=== PATIENT | male | born 1990 | race Caucasian/White ===

== ENCOUNTER 2017-03-08 06:19 | Emergency (ER) | payer OTHER ==
[2017-03-08 08:11] VITALS: BP 114/72
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
== END 2017-03-08 08:10 | disposition home or self-care (01) ==
LOC: ED 06:19
DX: S83.8X1A Sprain of other specified parts of right knee, initial encounter (principal); M25.561 Pain in right knee; W10.9XXA Fall (on) (from) unspecified stairs and steps, initial encounter; Y93.9 Activity, unspecified; Y92.9 Unspecified place or not applicable
CPT/HCPCS: 99282

== ENCOUNTER 2017-03-10 09:37 | Observation (INO) | payer OTHER ==
[2017-03-10 10:48] LABS: Hematocrit 43 % (42-52); Hemoglobin 14.9 g/dl (14.0-18.0); Mean Corpuscular HGB Conc 35 g/dl (31-36); Mean Corpuscular Hemoglobin 30 pg (27-31); Mean Corpuscular Volume 85 fL (80-94); Mean Platelet Volume 9 um3 (7.4-10.4); Red Blood Count 5.02 10^6/ul (4.0-5.4); Red Cell Distribution Width 13 % (10.5-15); White Blood Count 11.7 10^3/ul (3.5-10.8)
[2017-03-10 11:03] LABS: Urine Bacteria Absent (Absent); Urine Bilirubin Negative (Negative); Urine Glucose Negative (Negative); Urine Nitrite Negative (Negative)
[2017-03-10] MEDS ORDERED: Ondansetron INJ* 2 MG/ML VIAL IV ONE (11:13)
[2017-03-10] MEDS ORDERED: Morphine INJ* 2 MG/ML 1 ML SYRINGE IV ONE (11:13)
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
[2017-03-10 11:14] LABS: ALT 14 U/L (7-52); AST 24 U/L (13-39); Albumin 4.6 g/dL (3.2-5.2); Alkaline Phosphatase 48 U/L (34-104); BUN/Creatinine Ratio 8.8 (8-20); Blood Urea Nitrogen 7 mg/dL (6-24); CO2 Carbon Dioxide 28 mmol/L (22-32); Calcium 9.9 mg/dL (8.6-10.3); Chloride 93 mmol/L (101-111); EGFR Non-African American 115.1 (>60); Glucose 92 mg/dL (70-100); Sodium 132 mmol/L (133-145); Total Protein 7.6 g/dL (6.4-8.9)
[2017-03-10 11:20] LABS: Anion Gap 11 mmol/L (2-11); Potassium 2.3 mmol/L (3.5-5.0)
[2017-03-10] MEDS ORDERED: Iohexol 300* (CONTRAST) 10 ML SDV IV ONE (11:20)
[2017-03-10 11:23] LABS: Benzodiazepine Urine Screen None Detected (None Detect)
[2017-03-10 11:59] LABS: Acetaminophen < 15 mcg/mL; Alcohol < 10 mg/dL (<10); Salicylate < 2.50 mg/dL (<30)
[2017-03-10 12:02] LABS: Magnesium 1.6 mg/dL (1.9-2.7)
[2017-03-10 12:10] LABS: TSH (Thyroid Stimulating Horm) 0.88 mcIU/mL (0.34-5.60)
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
[2017-03-10] MEDS ORDERED: Magnesium Sulfate 1 GM IV* 1 GM/100 ML BAG IV ONE (12:19)
[2017-03-10] MEDS ORDERED: Potassium Chlor TAB* 20 MEQ TAB.ER PO ONE (12:55)
[2017-03-10] MEDS ORDERED: Magnesium Oxide TAB* 400 MG PO ONE ×2 (12:55→16:54)
[2017-03-10] MEDS ORDERED: KCL 20 MEQ/100 ML IVPREMIX* 20 MEQ/100 ML BAG IV SCH (13:00)
[2017-03-10] MEDS ORDERED: HYDROcodone/ACETAMIN 5-325 MG* 1 TAB PO ONE (13:30)
[2017-03-10] MEDS ORDERED: LORazepam TAB(*) 1 MG PO ONE (16:44)
[2017-03-10] MEDS ORDERED: LORazepam TAB(*) 1 MG ONE (16:46)
[2017-03-10] MEDS: Potassium Chlor TAB* 20 MEQ TAB.ER PO SCH ×2 (19:22→20:32)
[2017-03-10] MEDS ORDERED: ARIPiprazole TAB* 5 MG PO SCH (21:00)
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
[2017-03-11 06:29] LABS: BUN/Creatinine Ratio 11.8 (8-20); Calcium 9.4 mg/dL (8.6-10.3); EGFR Non-African American 107.3 (>60); Magnesium 1.9 mg/dL (1.9-2.7); Potassium 3.1 mmol/L (3.5-5.0)
[2017-03-11 08:11] VITALS: BP 107/48
[2017-03-11] MEDS ORDERED: Potassium Chlor TAB* 20 MEQ TAB.ER PO ONE (08:13)
[2017-03-11] MEDS ORDERED: LORazepam TAB(*) 1 MG PO ONE ×2 (08:13→11:38)
[2017-03-11] MEDS ORDERED: HYDROcodone/ACETAMIN 5-325 MG* 1 TAB PO PRN (09:29)
[2017-03-11] MEDS ORDERED: LORazepam INJ* 2 MG/ML 1 ML VIAL IM ONE (11:50)
[2017-03-11] MEDS ORDERED: chlorproMAZINE TAB* 100 MG ONE (13:14)
[2017-03-11] MEDS ORDERED: chlorproMAZINE INJ* 25 MG/ML 2 ML (50 MG) ONE (13:18)
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
== END 2017-03-11 13:01 ==
LOC: ED 09:37 → MEDTELE 16:32
PROVIDERS: ADMIT Hospitalist; ATTEND Hospitalist
DX: E87.6 Hypokalemia (principal); F31.9 Bipolar disorder, unspecified; S22.42XA Multiple fractures of ribs, left side, initial encounter for closed fracture; V53.5XXA Driver of pick-up truck or van injured in collision with car, pick-up truck or van in traffic accident, initial encounter; Y92.410 Unspecified street and highway as the place of occurrence of the external cause
CPT/HCPCS: 36415; 71260; 74177; 80048; 80053; 80307; 80320; 80329; 81003; 81015; 83735; 84443; 85025; 96374; 96375; 99283; A9270-GY; G0378; G0480; J2060; J2270; J2405; J3480; Q9967

== ENCOUNTER 2017-03-11 13:04 | Inpatient (IN) | payer MEDICAID, OTHER ==
[2017-03-11] MEDS ORDERED: chlorproMAZINE TAB* 200 MG PO PRN (13:48)
[2017-03-11] MEDS ORDERED: chlorproMAZINE TAB* 100 MG PO PRN (13:48)
[2017-03-11] MEDS ORDERED: Nicotine Inhaler* 10 MG AMP INH PRN (13:48)
[2017-03-11] MEDS ORDERED: chlorproMAZINE INJ* 25 MG/ML 2 ML (50 MG) IM PRN (13:56)
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
[2017-03-12] MEDS ORDERED: ARIPiprazole TAB* 5 MG ONE (08:46)
[2017-03-12] MEDS: ARIPiprazole TAB* 5 MG PO SCH (09:17)
[2017-03-12] MEDS: Magnesium Oxide TAB* 400 MG PO SCH (14:39)
[2017-03-12] MEDS: Potassium Chlor TAB* 10 MEQ TAB.ER PO SCH ×2 (14:39→22:27)
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
[2017-03-13] MEDS: Magnesium Oxide TAB* 400 MG PO SCH ×2 (08:15→21:39)
[2017-03-13] MEDS: Potassium Chlor TAB* 10 MEQ TAB.ER PO SCH ×3 (08:15→21:38)
[2017-03-13] MEDS: ARIPiprazole TAB* 5 MG PO SCH (08:15)
[2017-03-14] MEDS: Potassium Chlor TAB* 10 MEQ TAB.ER PO SCH ×3 (08:30→21:11)
[2017-03-14] MEDS: ARIPiprazole TAB* 5 MG PO SCH (08:31)
[2017-03-14] MEDS: Magnesium Oxide TAB* 400 MG PO SCH ×3 (08:31→21:11)
[2017-03-14 09:14] LABS: BUN/Creatinine Ratio 9.7 (8-20); Calcium 10.5 mg/dL (8.6-10.3); EGFR African American 167.2 (>60); HDL Cholesterol 58.8 mg/dL; Potassium 3.2 mmol/L (3.5-5.0)
[2017-03-14 11:17] LABS: Magnesium 1.7 mg/dL (1.9-2.7)
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
--- NOTE | 2017-03-14 13:37 | PN ---
MHU: Group Therapy Note - Service Type Service Type: [id number] Group Psychotherapy - Cognitive Behavioral Group Therapy ( CBT):Patient was attentive and participatory in CBT programming this morning, and remained in good behavioral control. Patient expressed positive insights regarding relevant treatment interventions and goals.
[2017-03-14] MEDS: Acetaminophen TAB* 325 MG PO PRN (21:12)
[2017-03-15] MEDS: Acetaminophen TAB* 325 MG PO PRN (06:35)
[2017-03-15] MEDS: Potassium Chlor TAB* 10 MEQ TAB.ER PO SCH ×3 (08:15→21:08)
[2017-03-15] MEDS: ARIPiprazole TAB* 5 MG PO SCH (08:15)
[2017-03-15] MEDS: Magnesium Oxide TAB* 400 MG PO SCH ×3 (08:15→21:08)
[2017-03-15 08:17] VITALS: BP 117/88
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
--- NOTE | 2017-03-15 11:40 | PN ---
MHU: Group Therapy Note - Service Type Service Type: [id number] Group Psychotherapy - Cognitive Behavioral Group Therapy ( CBT):Patient was attentive and participatory in CBT programming this morning, and remained in good behavioral control. Patient expressed positive insights regarding relevant treatment interventions and goals.
[2017-03-15] MEDS ORDERED: Temazepam CAP* 15 MG PO PRN (14:58)
[2017-03-16] MEDS: Acetaminophen TAB* 325 MG PO PRN (05:10)
[2017-03-16] MEDS: ARIPiprazole TAB* 5 MG PO SCH (07:59)
[2017-03-16] MEDS: Magnesium Oxide TAB* 400 MG PO SCH (07:59)
[2017-03-16] MEDS: Potassium Chlor TAB* 10 MEQ TAB.ER PO SCH (07:59)
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
== END 2017-03-16 11:30 | disposition home or self-care (01) | DRG 753 ==
LOC: BSU 13:04
PROVIDERS: ADMIT Psychiatry & Neurology Psychiatry; ATTEND Psychiatry & Neurology Psychiatry
DX: F31.10 Bipolar disorder, current episode manic without psychotic features, unspecified (principal); E26.81 Bartter's syndrome; F17.210 Nicotine dependence, cigarettes, uncomplicated; S83.91XD Sprain of unspecified site of right knee, subsequent encounter; Z81.8 Family history of other mental and behavioral disorders; X58.XXXD Exposure to other specified factors, subsequent encounter; Z79.899 Other long term (current) drug therapy
CPT/HCPCS: 36415; 80048; 80061; 83735; 90853; 99222; 99231; 99232; 99238; A9270-GY

== ENCOUNTER 2017-05-06 06:38 | Inpatient (IN) | payer OTHER ==
[~2017-05-06 06:38] MED LIST: Buffered Lidocaine 0.9% SYRIN* 5 ML/SYR SYRINGE INTRADERM ONE; Famotidine IV* 10 MG/ML 2 ML (20 mg) IV ONE
[2017-05-06] MEDS ORDERED: Buffered Lidocaine 0.9% SYRIN* 5 ML/SYR SYRINGE ONE (06:46)
[2017-05-06] MEDS ORDERED: Famotidine IV* 10 MG/ML 2 ML (20 mg) ONE (06:46)
[2017-05-06] MEDS ORDERED: ceFAZolin 2 GM PREMIX(*) 2 GM/50 ML BAG IVPB ONE ×3 (06:46→15:41)
[2017-05-06] MEDS ORDERED: Ondansetron INJ* 2 MG/ML VIAL ONE (07:15)
[2017-05-06] MEDS ORDERED: Dexamethasone IV* 4 MG/ML 1 ML (4 MG) ONE (07:15)
[2017-05-06] MEDS ORDERED: Ketorolac INJ* 30 MG/ML 1 ML VIAL ONE (07:15)
[2017-05-06] MEDS ORDERED: Propofol* 10 MG/ML 20 ML BTL IV PUSH ONE (07:15)
[2017-05-06] MEDS ORDERED: Lidocaine 2% PF * 5 ML VIAL ONE (07:15)
[2017-05-06] MEDS ORDERED: KETAMINE HCL* 50 MG/ML 10 ML VIAL ONE (07:16)
[2017-05-06] MEDS ORDERED: Midazolam* 1 MG/ML 5 ML VIAL (5 MG) ONE (07:16)
[2017-05-06] MEDS ORDERED: fentaNYL* 50 MCG/ML 5 ML VIAL (250 MCG VIAL) ONE ×2 (07:16→11:09)
[2017-05-06] MEDS ORDERED: EPINEPHrine AMP 1 MG/ML ONE ×2 (07:16→07:27)
[2017-05-06] MEDS ORDERED: Bupivacaine 0.5% W/EPI SDV* 10 ML VIAL INJ ONE ×2 (07:17→07:27)
[2017-05-06] MEDS ORDERED: EPHEDrine (Pressors)* 50 MG/ML VIAL ONE (08:53)
[2017-05-06] MEDS ORDERED: fentaNYL* 50 MCG/ML 2 ML VIAL (100 MCG VIAL) IV PRN (13:46)
[2017-05-06] MEDS ORDERED: HYDROmorphone* 1 MG/ML 1 ML SYR IV PRN (13:46)
[2017-05-06] MEDS ORDERED: DiMENhydriNATE IV* 50 MG/ML VIAL IV PUSH PRN (13:46)
[2017-05-06] MEDS ORDERED: Ondansetron ODT TAB* 4 MG PO PRN (13:46)
[2017-05-06] MEDS ORDERED: fentaNYL* 50 MCG/ML 2 ML VIAL (100 MCG VIAL) ONE (16:06)
[2017-05-06] MEDS ORDERED: HYDROmorphone* 1 MG/ML 1 ML SYR ONE (16:35)
[2017-05-06] MEDS ORDERED: Morphine INJ* 2 MG/ML 1 ML SYRINGE IV PRN (17:02)
[2017-05-06] MEDS ORDERED: Ondansetron INJ* 2 MG/ML VIAL IV PRN (17:02)
[2017-05-06] MEDS ORDERED: diPHENhydraMINE IV* 50 MG/ML 1 ml VIAL (BENADRYL) IV PRN (17:02)
[2017-05-06] MEDS ORDERED: oxyCODONE/Acetamin 5/325 MG* TAB PO PRN (17:02)
[2017-05-06] MEDS ORDERED: Acetaminophen TAB* 325 MG PO PRN (17:02)
[2017-05-06] MEDS ORDERED: oxyCODONE TAB* 5 MG TAB PO PRN (17:02)
[2017-05-06] MEDS ORDERED: Bisacodyl SUPP* 10 MG SUPP PR PRN (17:02)
[2017-05-06] MEDS ORDERED: Magnesium Hydroxide LIQ* 30 ML UDC PO PRN (17:02)
[2017-05-06] MEDS ORDERED: Temazepam CAP* 15 MG PO PRN (17:07)
[2017-05-06] MEDS ORDERED: Potassium Chlor TAB* 20 MEQ TAB.ER PO ONE (17:33)
--- NOTE | 2017-05-06 17:40 | CONSULT ---
Subjective Date of Service: 05/06/17 Interval History: 27 yo M with hx of Gitelman syndrome, bipolar disorder s/p repair of R knee multi-ligament injury. Patient seen in PACU, no complaints currently. Aside from knee pain has been feeling well lately. No recent illnesses, fever, chills. Confirmed home electrolyte replacements, took AM doses, did not have mid -day potassium. Bipolar has been well controlled on Abilify since recent admission. Family History: Unchanged from Admission - Parents both living, no significant hx Social History: Unchanged from Admission - Works at [employer]. No tobacco use. Occasional EtOH. No drug use Past Medical History: Unchanged from Admission - Bipolar disorder, Gitelman syndrome Review of Systems - Measurements Intake and Output: Intake and Output Last 24 Hours 05/04/17 05/05/17 05/06/17 05/07/17 06:59 06:59 06:59 06:59 Intake Total 150 Balance 150 Weight 68.039 kg 71.94 kg Intake: IV Fluids 150 NS 100ML, Cefazolin 2G 150 - Review of Systems Constitutional Symptoms: Negative: Fever Dermatology: Positive: Normal HEENT: Positive: Normal Eyes: Positive: Normal Thyroid: Positive: Normal Pulmonary: Positive: Normal Cardiology: Positive: Normal Gastroenterology: Positive: Normal Genital - Urinary: Positive: Normal Musculoskeletal: Positive: Joint Pain Endocrinology: Positive: Normal Neurology: Positive: Normal Psychiatry: Positive: Normal - since recent psych admission Objective Active Medications: Acetaminophen (Tylenol Tab*) 650 mg PO Q4H PRN Aspirin (Aspirin Tab*) 325 mg PO DAILY ROMAINE Bisacodyl (Dulcolax Supp*) 10 mg SC DAILY PRN Dimenhydrinate (Dramamine Iv*) 25 mg IV PUSH ONCE PRN Diphenhydramine HCl (Benadryl Iv*) 25 mg IV Q6H PRN Fentanyl Citrate (Fentanyl*) 50 mcg IV Q5M PRN Hydromorphone HCl (Dilaudid Iv*) 0.5 mg IV Q10M PRN Lactated Ringer's (Lactated Ringers 1000 Ml Bag*) 1,000 mls @ 125 mls/hr IV PER RATE ROMAINE Cefazolin Sodium 1 gm/ Sodium (Chloride) 50 mls @ 200 mls/hr IVPB Q8H ROMAINE Lactated Ringer's (Lactated Ringers 1000 Ml Bag*) 1,000 mls @ 100 mls/hr IV PER RATE ROMAINE Magnesium Hydroxide (Milk Of Magnesia Liq*) 30 ml PO Q6H PRN Magnesium Oxide (Magox 400 Tab*) 240 mg PO BID ROMAINE Morphine Sulfate (Morphine Inj (Syringe)*) 2 mg IV Q2H PRN Multivitamins (Theragran Tab*) 1 tab PO DAILY ROMAINE Non-Formulary Medication (Aripiprazole Tab* [Abilify Tab*]) 10 mg PO QAM ROMAINE Non-Formulary Medication (Temazepam Cap* [Restoril Cap*]) 15 mg PO BEDTIME PRN Ondansetron HCl (Zofran Odt Tab*) 4 mg PO ONCE PRN Ondansetron HCl (Zofran Inj*) 4 mg IV Q6H PRN Oxycodone HCl (Roxycodone Tab*) 10 mg PO Q4H PRN Oxycodone/Acetaminophen (Percocet 5/325 Tab*) 1 tab PO Q3H PRN Oxycodone/Acetaminophen (Percocet 5/325 Tab*) 2 tab PO Q3H PRN Potassium Chloride (Klor Con Er Tab*) 30 meq PO TID ROMAINE Potassium Chloride (Klor Con Er Tab*) 30 meq PO ONCE ONE Vital Signs 05/06/17 06:56 Temperature 97.7 F Pulse Rate 50 Respiratory 20 Rate Blood Pressure 104/77 (mmHg) O2 Sat by Pulse 98 Oximetry Oxygen Devices in Use Now: Nasal Cannula Appearance: Young, M, laying in bed in NAD Eyes: No Scleral Icterus Ears/Nose/Mouth/Throat: - - Dry MM Neck: NL Appearance and Movements; NL JVP Respiratory: Symmetrical Chest Expansion and Respiratory Effort, Clear to Auscultation Cardiovascular: NL Sounds; No Murmurs; No JVD, - - Mild tachycardia Abdominal: NL Sounds; No Tenderness; No Distention Lymphatic: No Cervical Adenopathy Extremities: - - RLE with large BOLIVAR wrap in place, R knee brace Skin: No Rash or Ulcers Neurological: Alert and Oriented x 3 Assessment/Plan - Billing R knee multi-ligament injury s/p repair in a 27 yo M with hx of Gitelman syndrome, bipolar disorder 1) S/P R knee ligament/meniscus repair - management/analgesia as per Ortho - on ASA 325 mg daily 2) Gitelman syndrome - will resume home Potassium and Mg - will give additional one time dose of Potassium 30 mEq now as he missed his mid-day dose - BMP and Mg BID, replete additionally as needed 3) Bipolar disorder - controlled, continue Abilify 4) DVT PPx - SCDs/ASA Thank you for this consult, will continue to follow.
[2017-05-06 18:59] LABS: BUN/Creatinine Ratio 8.7 (8-20); Calcium 9.1 mg/dL (8.6-10.3); EGFR African American 125.1 (>60); EGFR Non-African American 97.3 (>60); Magnesium 1.4 mg/dL (1.9-2.7)
[2017-05-06] MEDS: oxyCODONE/Acetamin 5/325 MG* TAB PO PRN ×2 (19:19→23:37)
[2017-05-06] MEDS: ceFAZolin 1 GM ADVAN(*) 1 GM in NS 0.9% 50 ML* 50 ML IVPB SCH (21:04)
[2017-05-06] MEDS: Potassium Chlor TAB* 10 MEQ TAB.ER PO SCH (21:09)
[2017-05-06] MEDS: Magnesium Oxide TAB* 400 MG PO SCH (21:45)
[2017-05-06] MEDS ORDERED: Magnesium Sulfate 2 GM IV* 2 GM/50 ML BAG IVPB ONE (23:07)
[2017-05-07] MEDS: oxyCODONE/Acetamin 5/325 MG* TAB PO PRN ×3 (04:12→12:08)
[2017-05-07] MEDS: ceFAZolin 1 GM ADVAN(*) 1 GM in NS 0.9% 50 ML* 50 ML IVPB SCH ×2 (04:14→12:08)
[2017-05-07 07:08] LABS: BUN/Creatinine Ratio 13.4 (8-20); EGFR African American 142.9 (>60); EGFR Non-African American 111.1 (>60); Potassium 4.3 mmol/L (3.5-5.0)
[2017-05-07] MEDS: Potassium Chlor TAB* 10 MEQ TAB.ER PO SCH (07:58)
[2017-05-07] MEDS: Magnesium Oxide TAB* 400 MG PO SCH (07:59)
--- NOTE | 2017-05-07 08:17 | PN ---
Subjective Date of Service: 05/07/17 Interval History: Patient seen this morning. Some knee pain controlled by meds, otherwise no complaints. Has been ambulating with walker and gait belt. No fever or chills, no N/V. Good PO intake. Family History: Unchanged from Admission - Parents both living, no significant hx Social History: Unchanged from Admission - Works at [employer]. No tobacco use. Occasional EtOH. No drug use Past Medical History: Unchanged from Admission - Bipolar disorder, Gitelman syndrome Objective Active Medications: Acetaminophen (Tylenol Tab*) 650 mg PO Q4H PRN Aripiprazole (Abilify Tab*) 10 mg PO QAM ROMAINE Aspirin (Aspirin Tab*) 325 mg PO DAILY ROMAINE Bisacodyl (Dulcolax Supp*) 10 mg AK DAILY PRN Diphenhydramine HCl (Benadryl Iv*) 25 mg IV Q6H PRN Cefazolin Sodium 1 gm/ Sodium (Chloride) 50 mls @ 200 mls/hr IVPB Q8H ROMAINE Lactated Ringer's (Lactated Ringers 1000 Ml Bag*) 1,000 mls @ 100 mls/hr IV PER RATE ROMAINE Magnesium Hydroxide (Milk Of Magnesia Liq*) 30 ml PO Q6H PRN Magnesium Oxide (Magox 400 Tab*) 400 mg PO BID ROMAINE Morphine Sulfate (Morphine Inj (Syringe)*) 2 mg IV Q2H PRN Multivitamins (Theragran Tab*) 1 tab PO DAILY ROMAINE Ondansetron HCl (Zofran Inj*) 4 mg IV Q6H PRN Oxycodone HCl (Roxycodone Tab*) 10 mg PO Q4H PRN Oxycodone/Acetaminophen (Percocet 5/325 Tab*) 1 tab PO Q3H PRN Oxycodone/Acetaminophen (Percocet 5/325 Tab*) 2 tab PO Q3H PRN Potassium Chloride (Klor Con Er Tab*) 30 meq PO TID ROMAINE Temazepam (Restoril Cap*) 15 mg PO BEDTIME PRN Vital Signs 05/06/17 05/06/17 05/06/17 17:05 17:10 17:15 Temperature 99.3 F Pulse Rate 101 88 99 Respiratory 12 10 10 Rate Blood Pressure 117/63 116/61 119/59 (mmHg) O2 Sat by Pulse 99 99 99 Oximetry 05/07/17 05/07/17 07:08 07:59 Temperature 97.5 F Pulse Rate 60 Respiratory 16 16 Rate Blood Pressure 115/64 (mmHg) O2 Sat by Pulse 100 Oximetry Oxygen Devices in Use Now: None Appearance: Young, M, laying in bed in NAD Eyes: No Scleral Icterus Ears/Nose/Mouth/Throat: Mucous Membranes Moist Neck: NL Appearance and Movements; NL JVP Respiratory: Symmetrical Chest Expansion and Respiratory Effort, Clear to Auscultation Cardiovascular: NL Sounds; No Murmurs; No JVD, RRR Abdominal: NL Sounds; No Tenderness; No Distention Lymphatic: No Cervical Adenopathy Extremities: - - R knee with cryo unit and immobilizer in place Skin: No Rash or Ulcers Neurological: Alert and Oriented x 3 Result Diagrams: 05/07/17 06:24 Assess/Plan/Problems-Billing R knee multi-ligament injury s/p repair in a 27 yo M with hx of Gitelman syndrome, bipolar disorder 1) S/P R knee ligament/meniscus repair - management/analgesia as per Ortho - on ASA 325 mg daily 2) Gitelman syndrome - continue home potassium and magnesium supplements, lytes stable - BMP and Mg BID 3) Bipolar disorder - controlled, continue Abilify 4) DVT PPx - SCDs/ASA Thank you for this consult, will continue to follow.
--- NOTE | 2017-05-07 08:23 | RAD ---
CPT II Codes: 6045F INDICATION: ACL sprain TECHNIQUE: Intraoperative fluoroscopy was provided during surgical repair of an injured ACL. FINDINGS: 3 spot films depict multiple views of the knee in anatomic alignment. Fluoroscopy time: 20 seconds IMPRESSION: As above.
[2017-05-07] MEDS ORDERED: Aspirin TAB* 325 MG PO SCH (09:00)
[2017-05-07] MEDS ORDERED: Vitamin THERAPEUTIC TAB PO SCH (09:00)
[2017-05-07] MEDS ORDERED: ARIPiprazole TAB* 5 MG PO SCH (09:00)
--- NOTE | 2017-05-07 09:59 | PN ---
Progress Note - Progress Note Date of Service: 05/07/17 SOAP: Subjective: patient resting comfortably with minimal complaints of pain Objective: Vital Signs Temp Pulse Resp BP Pulse Ox 97.5 F 60 16 115/64 100 05/07/17 07:08 05/07/17 07:08 05/07/17 08:07 05/07/17 07:08 05/07/17 08:07 Laboratory Last Values Sodium 136 mmol/L (133-145) 05/07/17 06:24 Potassium 4.3 mmol/L (3.5-5.0) 05/07/17 06:24 Chloride 98 mmol/L (101-111) L 05/07/17 06:24 Carbon Dioxide 33 mmol/L (22-32) H 05/07/17 06:24 Anion Gap 5 mmol/L (2-11) 05/07/17 06:24 BUN 11 mg/dL (6-24) 05/07/17 06:24 Creatinine 0.82 mg/dL (0.67-1.17) 05/07/17 06:24 Est GFR ( Amer) 142.9 (>60) 05/07/17 06:24 Est GFR (Non-Af Amer) 111.1 (>60) 05/07/17 06:24 BUN/Creatinine Ratio 13.4 (8-20) 05/07/17 06:24 Glucose 117 mg/dL (70-100) H 05/07/17 06:24 Calcium 9.0 mg/dL (8.6-10.3) 05/07/17 06:24 Magnesium 2.0 mg/dL (1.9-2.7) 05/07/17 06:24 incision: c/d; immobilizer in place PE: NVI Assessment: s/p right knee multi-ligament repair; POD #1 Plan: 1) PT- NWM RLE, immobilizer at all times 2) Home today- begin outpt PT this week, ASA 325mg BID for DVT prophyalxis, F/U next week with Dr. Maya <Ami Singletary - Last Filed: 05/07/17 09:55> - Progress Note SOAP: Subjective: No pain. Objective: RLE: - dressing c/d/i - brace in place - NVID including DP/PT pulses Assessment: POD 1 ACL reconstruction c allograft, PLC/LCL reconstruction c allograft, MCL repair, partial medial and lateral menisectomy Plan: - Percocet prn - ASA 325 mg po bid x 4 weeks - PT today. Discussed plan with therapists. Pt will see outpatient PT this week. - Likely d/c home today - Pt will f/u in clinic this coming week with me. - Dressing change then or on POD3 by patient at home. - HERNAN VAN, knee brace locked in extension, crutches <Km Maya - Last Filed: 05/07/17 10:55>
[2017-05-07 12:27] VITALS: BP 102/52
--- NOTE | 2017-05-08 11:02 | OP ---
OPERATIVE REPORT: DATE OF OPERATION: 05/06/17 DATE OF : 86 SURGEON: Km Maya MD VP PLATFORMS: RUTH Reid Physician assistant community director was required throughout the length of the procedure for positioning and retraction, as well as some assistance with closure. ANESTHESIOLOGIST: Kevin Quintero MD ANESTHESIA: General anesthesia, local anesthesia consisting of 10 cc of 0.5% Marcaine with epinephrine. PRE-OP DIAGNOSES: 1. Right knee ACL tear 2. Right knee posterolateral corner, lateral collateral ligament tears and insufficiency. 3. Right knee MCL tear and insufficiency. 4. Right knee medial meniscus tear. 5. Right knee lateral meniscus tear. POST-OP DIAGNOSES: 1. Right knee ACL tear 2. Right knee posterolateral corner, lateral collateral ligament tears and insufficiency. 3. Right knee MCL tear and insufficiency. 4. Right knee medial meniscus tear. 5. Right knee lateral meniscus tear. OPERATIVE PROCEDURES: 1. Right knee arthroscopic ACL reconstruction with [id number] allograft. 2. Right knee open posterolateral corner including lateral collateral ligament reconstruction with tibialis anterior allograft. 3. Right knee open medial collateral ligament repair. 4. Right knee open peroneal nerve neurolysis. 5. Right knee arthroscopic partial medial meniscectomy. 6. Right knee arthroscopic partial lateral meniscectomy. ANTIBIOSIS: Ancef 2 g IV prior to the start of the procedure, 1 g Ancef IV 4 hours later. IV FLUIDS: 2650 cc crystalloid. TOURNIQUET TIME: 1 hour and 47 minutes of 300 mmHg broken up into 2 periods of time. The tourniquet was elevated for 1 hour during the posterolateral corner reconstruction. It was deflated for over 15 minutes for the infusion of the second dose of antibiotics. Then it was reinflated for 47 minutes. COMPLICATIONS: None. SPECIMEN: None. ESTIMATED BLOOD LOSS: Less than 200 cc. URINE OUTPUT: 600 cc. IMPLANTS: Mitek Nidia BioComposite screw, 9 x 23 mm, one screw in the femur and one in the tibia for the ACL graft fixation. For the posterolateral reconstruction, I used an Arthrex 5.5 mm SwiveLock screw x1 for the popliteal limb in the femur. I used 2 Bio- Tenodesis screws each 5.5 mm, one in the fibular head and the other in the femur for the LCL limb. For the MCL repair, I used a Mitek GRYPHON [place], double loaded, x1. Of course, I also used allograft [id number] and tibialis anterior allografts. 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 The patient's history included knee injury in 2014, when he twisted his knee while chasing a soccer ball while wearing heavy boots. An MRI was done at the time, the patient was seen by Dr. Henriquez. The patient was first managed nonoperatively and the patient failed to continue following up in clinic. The patient was able to live with his knee function, although he admitted to instability episodes as often as once daily. Then, at work on March 05, 2017, the patient was descending stairs. On the final step, he heard a pop in his right knee and fell landing directly on to the anterior aspect of both knees. When he stood up, there was a pop and he had a near syncopal episode. The next morning, he noted that the knee became very swollen. Patient had significant medial and posterior knee pain subsequent. The patient followed up with me in clinic. 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 It also showed medial and lateral meniscus tears. It showed some laxity of the lateral collateral ligament and popliteus, appreciated by me on my first look and agreed to by Radiology after they reexamined the MRI. There was some MCL and LCL tissue clearly present and without clear interruption. In clinic, the patient had a gross instability of the ACL with a sickening amount of displacement with a pivot shift and Yasmin and anterior drawer testing. He also had gross instability, gross laxity at the lateral and medial collateral ligaments. This was appreciated on physical exam, but it was also confirmed with stress view x-rays, performed by me, in clinic, and compared with the contralateral knee. This showed very high grade differences and medial and lateral gapping of that right knee with stress testing. The patient had a recent hospitalization for psychiatric reasons and admitted to prior episodes and has a diagnosis of bipolar disorder. Therefore, I made sure to screen the patient with multiple preoperative clinic visits to confirm his reliability, given the lengthy nature of postoperative rehabilitation after a multiligamentous knee reconstruction. The patient presented to every single preoperative clinic visit appropriately. He also went to physical therapy, where he did some strengthening exercises as well as discussed the postoperative rehabilitation. Of note, on exam, the patient was noted to have a high Beighton score of 6. The patient agreed to surgery. On several occasions, we spoke about benefits, risks, and potential complications of surgery, principally among them the high risk of stiffness after a multiligamentous knee reconstruction. It is slightly less of a concern given his very flexible nature constitutionally. We spoke about graft options and decided on allograft options given the extensiveness and the long time nature and duration of a multiligamentous knee reconstruction. DESCRIPTION OF PROCEDURE: Preoperative written consent was obtained. The operative extremity was marked in preoperative holding. I again discussed every one of the steps that I would go through structure by structure in terms of what would be repaired. I have done that several times with the patient in the clinic and I did it with operating room staff as well. The patient was taken back to the operating room, placed supine on the operating room table. General anesthesia was induced. Examination under anesthesia was performed and the patient had significant laxity with Yasmin and anterior drawer testing. I withheld on pivot shift testing as the extent of the shift in clinic had been startling in the past and I wanted to avoid any injury. A tourniquet was placed around the proximal right thigh. The tip was kept flat. A blanket bump was placed under the right hemipelvis. A lateral post was placed about the right hip to prevent external rotation of the right lower extremity. A lateral post was placed near the knee to help open up the knee for valgus stress. The right lower extremity was prepped and draped. A surgical time-out was performed. An anterolateral right knee arthroscopy portal was created using standard technique. A diagnostic arthroscopy was commenced. The patient did not have significant articular cartilage wear in his patellofemoral compartment. There was some synovitis noted entering into that compartment from anterior. I next dropped down to the medial compartment. It was very clear immediately that the knee was significantly subluxed anteriorly. This was very visible arthroscopically and made it difficult to view into either the medial or the lateral compartment. Therefore, I had my assistant community director, while providing a valgus stress, also placing a significant posterior translational stress on the tibia to essentially locate the knee and make it look normal arthroscopically, so that I could enter the medial compartment. Upon entering the medial compartment , there were some subtle grade 2 changes in various locations about the medial compartment, but no significant or unstable articular cartilage lesions. There was a vertical, longitudinal tear in the posterior horn of the medial meniscus, located in the white-white or white-red zone. It appeared chronic in nature with the central tissue looking frayed. I then looked into the intercondylar notch and there was an absent ACL. PCL looked intact. I looked briefly into the lateral compartment. I established an anteromedial knee arthroscopy portal using direct visualization. I entered a probe into the medial compartment and probed the meniscus tear. I confirmed the features of the tear noted above. I debrided that meniscal tear back to a stable rim with arthroscopic shaver and a bucket biter. I probed the meniscus and confirmed its stability and no additional tears. I then moved to the intercondylar notch and debrided some synovitis anteriorly. I then moved to the lateral compartment. The lateral compartment likewise had no unstable articular cartilage lesions. There was, however, a significant defect of the lateral meniscus, much of the body was missing. From the anterior horn to the posterior horn, it looked as though much meniscal tissue was absent and the little of it that remained was present lateral to the outer rim of the tibial plateau, subluxed laterally. The stumps of meniscus about the anterior and posterior horn had some frayed slightly unstable tissue that was debrided with arthroscopic shaver. Looking into the lateral compartment, I could actually see both the popliteus and, interestingly, the lateral collateral ligament. This likely speaks to the attenuation, severe, of the lateral capsule that I could view the lateral collateral ligament so well from intraarticular. At this point, the meniscal component of the procedure was complete and we proceeded to the ACL reconstruction. The DeMayo knee positioner was assembled. The knee was placed into 90 degrees of flexion. The notch was debrided of some synovitic tissue. Some remaining ACL tissue about the origin and insertion was debrided. The lateral wall of the intercondylar notch was debrided with arthroscopic shaver followed by vapor electrocautery. A lateral notch-plasty was then performed. This opened up the notch nicely. At some point, I probed the PCL and confirmed its components. There was some slight small flap of tissue about the root of the posterior horn of the lateral meniscus that I debrided. The allograft [id number] had been thawed on my instructions. I next moved to the back table and worked on it. The precontoured bone blocks were contoured slightly additionally so that each would fit easily through a 10-mm aperture and just barely through a 9.5 mm aperture. The length of the patellar bone block was made 23 mm and I kept the tibial bone block at 28 mm. One drill hole was made in the patellar bone block and two in the tibial bone block. Next , I placed sutures, one proximally and two distally. With one suture on each end, I placed 2 or 3 whip stitches on either side of the tendon and then weaved that suture through the bone hole. I do this just in case there is any failure of bone block with tensioning. The graft was very robust with the sutures in place. I placed it on stretch and placed a wet gauze over it. I then returned to the knee. I marked a position of the posterior wall at the 10:30 position with the knee in 90 degrees of flexion. I did this through my primary working portal for the ACL procedure, which is a second, accessory, anteromedial portal. With a Frankie pick, I marked this location. I then hyperflexed the knee and placed a Beath pin through the femur, distal. I next reamed a 10 mm tunnel, 30 mm in length. I then shaved up the bony detritus. I imaged the location of this tunnel through both the anterolateral and the anteromedial portal. I then made my tibial tunnel. I returned the knee to 90 degrees of flexion. I viewed down on the footprint of the ACL tissue. I noted the location of the posterior-most aspect of the anterior horn of the lateral meniscus. I also noted the contour of the tibial spines. I went to the mid point perhaps 1 mm posterior to the posterior aspect of the anterior horn of the lateral meniscus. I put my tibial tunnel guide there set at 55 degrees. I made a longitudinal incision distally over the anteromedial proximal lower leg and incised with splitting down to bone. I next drilled a 10 mm tibial tunnel. I removed the instruments and then I shaved out the detritus. I next replaced a Beath pain in the femur and placed a passing stitch that I brought down through the tibial tunnel. I next passed my graft. After some resistance, it passed fully. I rotated it appropriately. I placed a Nitinol wire in the femur, then tapped the femur and placed a 9 x 23 mm Nidia screw in the femoral tunnel. I liked my fixation and my graft location. I then removed instruments and fluid from the knee. I fully extended the knee. My assistant community director put an aggressive posterior drawer force on the knee. I then, while holding tension on the graft through the tibia, placed a Nitinol wire, tapped and then placed a 9 mm x 23 mm Nidia screw. I tested the stability of the graft with a Yasmin maneuver and the anterior drawer maneuver and I liked the stability of the knee. I also visualized the reconstruction arthroscopically with the knee from full flexion to full extension. I stress tested the LCL and MCL at this point with varus and valgus testing in 30 degrees of knee flexionand found there to be increased laxity of both. The ACL reconstruction procedure was done and it was time for the posterolateral corner and lateral collateral ligament reconstruction, open. I placed an Esmarch and elevated the tourniquet to 300 mmHg. With the marking pen, I marked all the appropriate lateral and medial anatomy. I made a curved incision, proximally centered over the mid point of the iliotibial band, crossing over the lateral epicondyle, and ending distally between the fibular head and Gerdy's tubercle and moving straight distal from there. The patient was quite thin, so this dissection was fairly rapid. After I got through the skin and superficial-most subcutaneous layer, I dissected with scissors through the subcutaneous tissue and quickly encountered the iliotibial band and next layer of tissues. As I debrided the subcutaneous tissue off the next layer of fascia and tendons, anatomy quickly came into view in terms of the iliotibial band, short head of biceps, long head of biceps, fibular head, and lateral compartment musculature. I next proceeded with the peroneal nerve neurolysis, open. Using spreading dissection, I carefully lifted the fascial tissue superficial to the peroneal nerve, at multiple locations in its course, from posterior to the long head of the biceps more proximally, to the location of the femoral neck more distally. The peroneal nerve was visualized excellently and was freely mobile. I briefly had a strip of Esmarch around it, but felt that that would unduly tension it and it was out of the way and very visible, so easy to avoid injuring during the remainder of the case. So would also avoid it scarring into the lateral aspect of the knee. I next proceeded with the remainder of the posterolateral horn reconstruction. I made multiple incisions, standard windows for this technique. First window was splitting the fascia of the long head of the biceps over the fibular head. Second was between the short head of the biceps and the iliotibial band and third was about the mid point of the iliotibial band from anterior to posterior. Using careful dissection, with having my loupe magnifying glasses on , I was able to eventually make out the lateral collateral ligament and popliteal tendon structures. The lateral collateral ligament was noted to be grossly attenuated and likely severely nonfunctional. I noted the campo insertion of the popliteus as well as I noted the site of the lateral epicondyle and the campo origin of the LCL, just proximal posterior to that. The most clear-cut was the origin of the popliteus and I first placed a pin in that location, aiming suitably anterior and proximal. I next placed an Arthrex guide and my pins by 16 mm rather than 18 mm given the patient's slightly smaller stature. I placed the second pin in the location adjacent to the LCL origin at the lateral epicondyle. Next, I used mini C-arm fluoroscopy to evaluate those locations. Those are saved. I noted both looking visually at my pins and looking at C-arm fluoroscopic images that it appeared that my 2 pins were most significantly related proximal to distal and were not that different in the anterior to posterior plane. In an effort to anteriorize my lateral pin, I therefore decided to move that pin slightly anterior. Therefore , I removed the first pin placed for the popliteal tendon tunnel, replaced a 16 mm guide and placed a new pin. I did not take additional images after replacing that distal pin for the popliteal tendon tunnel. I next drilled my pin in the fibular head, anterolateral to posteromedial. I dissected posteriorly to make that a safe pinning and I placed an [employer] posteromedial to avoid any pass-pointing. I next arthroscoped the knee. I did so to look for any damage to my ACL graft or any pin penetration into the intercondylar notch or into the trochlear groove. There was no such pin present. Therefore, I felt comfortable drilling my tunnels. I next drilled tunnels. I drilled 6 mm tunnels, each 25 mm in length in the femur. I drilled a 6 mm tunnel in the fibular head. I next passed my graft, tibialis anterior, that I prepared on the back table with FiberLoop suture. I placed it in my popliteal tunnel with a SwiveLock, 5.5 mm. I next placed it along the path of the campo popliteus through the fibular head and tensioned it there, and placed a 5.5 mm screw in the fibular head, Bio-Tenodesis. Of note, I placed this second screw with the knee in 30 degrees of flexion and internal rotation while also pulling traction on the graft through the fibular head tunnel. I placed the pin that was in the LCL femur tunnel all the way through to the medial femur. I used this Beath pin to pass sutures of my graft through to the contralateral medial side of the femur. I had been aiming for just proximally adductor tubercle of the distal femur. With tensioning by my assistant community director about the medial femur, with the knee at 30 degrees and in some slight valgus, I then placed a Bio-Tenodesis screw into the LCL femoral tunnel. I next stress tested the knee in varus in 0 and 30 degrees of flexion, and it was in excellent stability. It should be noted that when I completed the posterolateral reconstruction, I then closed that lateral side of the knee, prior to going medially. We closed that side with multiple stitches using Vicryl 0 suture. This included closing the iliotibial band, closing the long head of the biceps fascia, tenodesing the campo LCL and popliteus to the limbs of the reconstruction. I also closed the subcutaneous tissue with buried simple stitches using Vicryl 2-0 suture and the skin with amna. At this point, I also closed the distal longitudinal incision used for ACL reconstruction with fascial stitches with Vicryl 0 suture , figure of eight, buried simple stitches in the subcutaneous tissue using Vicryl 2-0 suture and amna to the skin. With the posterolateral corner and peroneal nerve neurolysis component of the procedure performed, next we moved to the medial side of the knee. We made a standard medial knee approach and dissected down with splitting dissection using scissors down to the MCL. It was noted to be slightly lax. I dissected down through the mid section of the MCL proximally, just distal to its insertion. Dissected down to bone. I used C-arm fluoroscopy to confirm that I was out of the joint. I placed one Mitek GRYPHON [place], double loaded, and placed two stitches into the surrounding MCL tissue to imbricate it. I also placed several figure-of- eight 0 stitches more distally where there was some slight fraying of the tendon. I closed the medial incision with subcutaneous buried simple stitches using Vicryl 2-0 suture and closed the skin with amna. When the operation was complete, examination under anesthesia revealed excellent stability with Yasmin and anterior drawer as well as no laxity with valgus and varus stress in 0 and 30 degrees of knee flexion. The tourniquet time was up for 1 hour. This was during the posterolateral corner part of the procedure. It was then down for at least 15 minutes, during which time antibiotics were infused. It was then up for 47 minutes. I found that there was no significant difference between bleeding with or without tourniquet, so I kept it down for most of the procedure. After the final exam under anesthesia, Xeroform was placed over the skin incision sites. 4 x 4's were placed followed by ABDs, followed by sterile Webril, followed by an Eliu bandage from foot to proximal thigh. The knee was placed in a knee brace locked in 30 degrees of flexion. I placed the knee in that amount of flexion to avoid any hyperextension. The patient was awakened, extubated, and brought to the PACU for admission to the hospital postoperatively. I decided to make this case an inpatient case because of the anticipated length of the procedure, as well as any concerns about poor reliability of the patient, and his requirement to have a physical therapy session on the weekend. DISPOSITION: The patient was admitted overnight for pain control, functional discussions, and a physical therapy session. The patient also had a Medicine consult because of his history of Gitelman's syndrome, as well as bipolar disorder. The patient's pain was controlled with Percocet and IV narcotics. The patient was to be anticoagulated with aspirin 325 mg p.o. b.i.d. x4 weeks. Ancef 1 g q. 8 hours while admitted to the hospital was planned. The procedure was a lengthy one, and the patient was very comfortable on postoperative day #0 and #1, in no appreciable pain. In the recovery room, he had good pulses and was neurovascularly intact distally. Patient will follow up with me during his first week postoperative just so I can keep close tabs on him. I changed his knee brace to lock in full extension on the morning of postoperative day #1 and spoke to physical therapist about his rehabilitation plan. [id number] #: [id number] JESUS
== END 2017-05-07 13:45 | disposition home or self-care (01) | DRG 313 ==
LOC: UNDOADMIN 06:38 → SSU 06:38 → AA 06:41 → EDSTATUS 07:30 → SSU 18:25
PROVIDERS: ADMIT Orthopaedic Surgery; ATTEND Orthopaedic Surgery
PROC: 0MQN0ZZ Repair Right Knee Bursa and Ligament, Open Approach (ICD-10-PCS; 2017-05-06)
PROC: 01NH0ZZ Release Peroneal Nerve, Open Approach (ICD-10-PCS; 2017-05-06)
PROC: 0MU Bursae and Ligaments, Supplement (ICD-10-PCS; 2017-05-06)
PROC: 0SBC4ZZ Excision of Right Knee Joint, Percutaneous Endoscopic Approach (ICD-10-PCS; 2017-05-06)
PROC: 0SBC4ZZ Excision of Right Knee Joint, Percutaneous Endoscopic Approach (ICD-10-PCS; 2017-05-06)
PROC: 0MUN4KZ Supplement Right Knee Bursa and Ligament with Nonautologous Tissue Substitute, Percutaneous Endoscopic Approach (ICD-10-PCS; principal; 2017-05-06 08:30)
DX: S83.511A Sprain of anterior cruciate ligament of right knee, initial encounter (principal); F31.9 Bipolar disorder, unspecified; W10.9XXA Fall (on) (from) unspecified stairs and steps, initial encounter; Y92.9 Unspecified place or not applicable; Z72.89 Other problems related to lifestyle; S83.411A Sprain of medial collateral ligament of right knee, initial encounter; S83.421A Sprain of lateral collateral ligament of right knee, initial encounter; S83.281A Other tear of lateral meniscus, current injury, right knee, initial encounter; S83.241A Other tear of medial meniscus, current injury, right knee, initial encounter
CPT/HCPCS: 36415; 76001; 80048; 83735; 94760; A9270-GY; C1768; C1776; J0171; J0690; J1100; J1170; J1885; J2250; J2405; J2704; J3010

== ENCOUNTER 2018-10-15 12:50 | Emergency (ER) | payer SELFPAY ==
[2018-10-15 13:41] VITALS: BP 116/75
--- NOTE | 2018-10-15 14:31 | UC ---
UC General HPI - HPI Summary HPI Summary: patient was feeling frustrated last week at work-he went to [facility] and restarted his Abilify-he felt he needed the rest of the week off to let the medication work and for him to feel better. His boss stated after 3 days he would need a doctor note---The counciler at [facility] could not write the note---they advised him to come to urgent care---patient denies violene, hi/si--- - History of Current Complaint Chief Complaint: UCPsych Stated Complaint: WORK NOTE Time Seen by Provider: 10/15/18 14:24 Hx Obtained From: Patient Onset/Duration: Gradual Onset, Resolved Pain Intensity: 0 - Allergy/Home Medications Allergies/Adverse Reactions: Allergies Allergy/AdvReac Type Severity Reaction Status Date / Time No Known Allergies Allergy Verified 05/06/17 06:54 Home Medications: Home Medications ARIPiprazole TAB* [Abilify TAB*] 10 mg PO DAILY 10/15/18 [History Confirmed 03/28] Potassium Gluconate 99 mg PO DAILY WITH MEAL 10/15/18 [History Confirmed ] PMH/Surg Hx/FS Hx/Imm Hx Previously Healthy: Yes Psychological History: Depression Other History Of: Negative For: Anticoagulant Therapy - Surgical History Surgical History: None Surgery Procedure, Year, and Place: bipolar agression - Family History Known Family History: Positive: None Family History: There is a family history of depression. - Social History Occupation: Employed Full-time Lives: With Family Alcohol Use: Occasionally Alcohol Amount: STATES HAD A "FEW BEERS" LAST NIGHT Substance Use Type: None Substance Use Comment - Amount & Last Used: today Smoking Status (MU): Never Smoked Tobacco - Immunization History Most Recent Influenza Vaccination: none Most Recent Tetanus Shot: unk Most Recent Pneumonia Vaccination: none Review of Systems All Other Systems Reviewed And Are Negative: Yes Constitutional: Positive: Negative Skin: Positive: Negative Eyes: Positive: Negative ENT: Positive: Negative Respiratory: Positive: Negative Cardiovascular: Positive: Negative Gastrointestinal: Positive: Negative Genitourinary: Positive: Negative Motor: Positive: Negative Neurovascular: Positive: Negative Musculoskeletal: Positive: Negative Neurological: Positive: Negative Psychological: Positive: Negative Is Patient Immunocompromised?: No Physical Exam Triage Information Reviewed: Yes Appearance: Well-Appearing, No Pain Distress, Well-Nourished Vital Signs: Initial Vital Signs Temp 98.2 F 10/15/18 13:36 Pulse 83 10/15/18 13:36 Resp 18 10/15/18 13:36 BP 116/75 10/15/18 13:36 Pulse Ox 99 10/15/18 13:36 Vital Signs Reviewed: Yes Eye Exam: Normal Eyes: Positive: Conjunctiva Clear ENT Exam: Normal ENT: Positive: Normal ENT inspection, Hearing grossly normal. Negative: Trismus , Muffled voice, Hoarse voice Dental Exam: Normal Neck exam: Normal Neck: Positive: Supple, Nontender Respiratory Exam: Normal Respiratory: Positive: Chest non-tender, No respiratory distress, No accessory muscle use Cardiovascular Exam: Normal Cardiovascular: Positive: RRR, Pulses Normal, Brisk Capillary Refill Musculoskeletal Exam: Normal Musculoskeletal: Positive: ROM Intact, No Edema Neurological Exam: Normal Neurological: Positive: Alert, Muscle Tone Normal Psychological Exam: Normal Psychological: Positive: Other: - denies hi/si/ Skin Exam: Normal Course/Dx - Course Course Of Treatment: will return patient to work and follow with Dr. Lay as planned - Diagnoses Provider Diagnosis: Return to work exam Discharge - Sign-Out/Discharge Documenting (check all that apply): Patient Departure All imaging exams completed and their final reports reviewed: No Studies - Discharge Plan Condition: Stable Disposition: HOME Patient Education Materials: Mood Disorders (ED) Forms: *Work Release Referrals: Michael Woo MD [Primary Care Provider] - Additional Instructions: follow with Dr. Lay and your therapy providers as planned - Billing Disposition and Condition Condition: STABLE Disposition: Home
== END 2018-10-15 14:40 | disposition home or self-care (01) ==
LOC: UCEAST 12:50
DX: Z02.79 Encounter for issue of other medical certificate (principal); F32.9 Major depressive disorder, single episode, unspecified; Z79.899 Other long term (current) drug therapy
CPT/HCPCS: 99211; G0463

== ENCOUNTER 2019-10-10 15:27 | Emergency (ER) | payer BC ==
--- NOTE | 2019-10-10 15:29 | UC ---
Abdominal Pain Male HPI - HPI Summary HPI Summary: 29 yo male presents with nausea. He tells me that over the last week he has been having intermittent abdominal cramping and nausea. Sometimes does not feel like eating, but other times eating helps his nausea. He vomited once a few days ago. He is asking for a work note for the day he missed work due to this illness. Denies fever, chills, cold symptoms, SOB, chest pain, diarrhea, dysuria , back pain. - History of Current Complaint Stated Complaint: NAUSEA, AND ABDOMINAL PAIN Time Seen by Provider: 10/10/19 15:29 Hx Obtained From: Patient Onset/Duration: Gradual Onset Severity Initially: Mild Severity Currently: Mild Pain Intensity: 2 Pain Scale Used: 0-10 Numeric - Allergies/Home Medications Allergies/Adverse Reactions: Allergies Allergy/AdvReac Type Severity Reaction Status Date / Time No Known Allergies Allergy Verified 10/10/19 15:36 PMH/Surg Hx/FS Hx/Imm Hx Psychological History: Bipolar Disorder Other History Of: Negative For: Anticoagulant Therapy - Surgical History Surgical History: None - Family History Known Family History: Positive: Other Family History: There is a family history of depression. - Social History Lives: With Family Alcohol Use: Occasionally Substance Use Type: None Substance Use Comment - Amount & Last Used: today Smoking Status (MU): Never Smoked Tobacco - Immunization History Most Recent Influenza Vaccination: none Most Recent Tetanus Shot: unk Most Recent Pneumonia Vaccination: none Review of Systems All Other Systems Reviewed And Are Negative: No Constitutional: Positive: Negative Skin: Positive: Negative Respiratory: Positive: Negative Cardiovascular: Positive: Negative Gastrointestinal: Positive: Abdominal Pain, Nausea Neurological: Positive: Negative Psychological: Positive: Negative Physical Exam - Summary Physical Exam Summary: GENERAL: NAD. WDWN. No pain distress. SKIN: No rashes, sores, lesions, or open wounds. NECK: Supple. Nontender. No lymphadenopathy. CHEST: CTAB. No r/r/w. No accessory muscle use. Breathing comfortably and in no distress. CV: RRR. Pulses intact. Cap refill <2seconds ABDOMEN: Soft. NTTP. No distention or guarding. No CVA tenderness. Bowel sounds present. Negative coombs sign. No mcburney point tenderness. NEURO: Alert. PSYCH: Age appropriate behavior. Triage Information Reviewed: Yes Vital Signs: Vital Signs: Temp Pulse Resp BP Pulse Ox 97.1 F 81 16 130/82 97 10/10/19 15:32 10/10/19 15:32 10/10/19 15:32 10/10/19 15:32 10/10/19 15:32 Laboratory Tests 10/10/19 15:49 POC Urine Color Yellow POC Urine Clarity Clear POC Urine pH 8.5 POC Ur Specif [place] 1.015 POC Urine Protein Trace POC Ur Glucose (UA) Negative POC Urine Ketones Negative POC Urine Blood Negative POC Urine Nitrite Negative POC Urine Bilirubin Negative POC Urine Urobilinogen 0.2 POC U Leukocyte Esteras Negative Vital Signs Reviewed: Yes Abd Pain Male Course/Dx - Course Course Of Treatment: UA as above. Afebrile and exam WNL. Pt tolerating po. Offered to obtain labwork today, but pt declined and is asking for a work note for the day he missed work. - Differential Dx/Clinical Impression Provider Diagnosis: Nausea, Viral syndrome Discharge ED - Sign-Out/Discharge Documenting (check all that apply): Patient Departure All imaging exams completed and their final reports reviewed: No Studies - Discharge Plan Condition: Stable Disposition: HOME Patient Education Materials: Acute Nausea and Vomiting (ED) Forms: *Work Release Referrals: Michael Woo MD [Primary Care Provider] - If Needed Additional Instructions: If you develop a fever, shortness of breath, chest pain, new or worsening symptoms - please call your PCP or go to the ED immediately. - Billing Disposition and Condition Condition: STABLE Disposition: Home
--- OUTSIDE RECORDS SUMMARY | 2019-10-10 15:32 | XMS REPORT ---
:1990 Author Name Subhash Cervantes Address [facility] [address] [place] [address] Care Team Providers Name Role Phone Subhash Cervantes Unavailable Unavailable Matthew Lay Unavailable Unavailable RosanneMatthew Unavailable Unavailable Allergies, Adverse Reactions, Alerts Allergy Code CodeSystem Reaction Severity Status Substance RxNorm Medications Medication Medication Medication Start Route Dose Status Fill Code CodeSystem Date Instructions RxNorm NoCurrentDosage No NoCurrentFrequency Longer Active aripiprazole RxNorm 2019-0 oral 10 mg tablet Active for 30 9-06 day(s) aripiprazole RxNorm 2019-0 oral 10 mg tablet No for 30 5-13 Longer day(s) Active Hospital Discharge Medications Medication Direction Start Date Status Indications Fill Instuctions No Discharge Medication Problems Problem Name Code CodeSystem Start Date End Date Status SNOMED-CT 2018-12-29 Active Laboratory Values/Results Test Test Code Code System Actual Result Date LOINC Procedures Procedure Name Code CodeSystem Target Site Date of Procedure SNOMED-CT () 2019-02-19 SNOMED-CT () 2019-05-25 SNOMED-CT () 2019-06-15 SNOMED-CT () 2019-06-22 SNOMED-CT () 2019-01-08 Encounter Diagnosis Code CodeSystem Description Date Finding Finding Status Code [address] [facility] Psychotherapy - 2019-06-10 - Active Individual 30 min 3 SNOMED-CT Vital Signs Vitals Date Value Immunizations Vaccine Name Vaccine Code CodeSystem Date Status Social History Element Description Start Date End Date Code CodeSystem Description SNOMED-CT Hospital Discharge Instructions Reason For Referral
[2019-10-10 15:36] VITALS: BP 130/82
== END 2019-10-10 15:55 | disposition home or self-care (01) ==
LOC: UCEAST 15:27
DX: B34.9 Viral infection, unspecified (principal); R11.0 Nausea; F31.9 Bipolar disorder, unspecified; R10.9 Unspecified abdominal pain
CPT/HCPCS: 81003; 99211; G0463

== ENCOUNTER 2019-12-09 13:49 | Emergency (ER) | payer BC ==
[2019-12-09 15:04] VITALS: BP 110/59
[2019-12-09 15:20] LABS: Influenza A Molecular POSITIVE (Negative)
[2019-12-09] MEDS ORDERED: Albuterol HFA INHALER* 8 gm MDI INH ONE (15:26)
--- NOTE | 2019-12-09 15:28 | UC ---
FLU HPI - HPI Summary HPI Summary: uri symptoms beginning 3 days ago has been taking otc multi-symptom relief with good effect - History of Current Complaint Chief Complaint: UCGeneralIllness Stated Complaint: FEVER HEAD / CHEST CONGESTION Time Seen by Provider: 12/09/19 15:11 Hx Obtained From: Patient Onset/Duration: Sudden Onset, Lasting Days - 3, Still Present Severity Currently: Moderate Severity Initially: Moderate Pain Intensity: 7 Pain Scale Used: 0-10 Numeric Associated Signs & Symptoms: Positive: Fever, Myalgia, Cough, Sore Throat, Nasal Congestion, Headache Related Hx: Possible Flu/Infectious Exposure - Allergy/Home Medications Allergies/Adverse Reactions: Allergies Allergy/AdvReac Type Severity Reaction Status Date / Time No Known Allergies Allergy Verified 12/09/19 15:04 Home Medications: Home Medications ARIPiprazole TAB* [Abilify TAB*] 10 mg PO DAILY 10/15/18 [History Confirmed 10/29] Potassium Gluconate 99 mg PO DAILY WITH MEAL 10/15/18 [History Confirmed ] PMH/Surg Hx/FS Hx/Imm Hx Previously Healthy: No Psychological History: Depression Other History Of: Negative For: Anticoagulant Therapy - Surgical History Surgical History: None Surgery Procedure, Year, and Place: knee surgery - Family History Known Family History: Positive: None, Other Family History: There is a family history of depression. - Social History Occupation: Employed Full-time Lives: With Family Alcohol Use: Occasionally Alcohol Amount: STATES HAD A "FEW BEERS" LAST NIGHT Substance Use Type: Marijuana Substance Use Comment - Amount & Last Used: today Smoking Status (MU): Never Smoked Tobacco - Immunization History Most Recent Influenza Vaccination: none Most Recent Tetanus Shot: unk Most Recent Pneumonia Vaccination: none Review of Systems All Other Systems Reviewed And Are Negative: Yes Constitutional: Positive: Fever, Chills, Fatigue Skin: Positive: Negative Eyes: Positive: Negative ENT: Positive: Ear Ache, Nasal Discharge, Sinus Congestion Respiratory: Positive: Cough Cardiovascular: Positive: Negative Gastrointestinal: Positive: Negative Genitourinary: Positive: Negative Motor: Positive: Negative Neurovascular: Positive: Negative Musculoskeletal: Positive: Arthralgia, Myalgia Neurological/Mental Status: Positive: Negative Psychological: Positive: Negative Is Patient Immunocompromised?: No Physical Exam Triage Information Reviewed: Yes Appearance: Well-Appearing, No Pain Distress, Well-Nourished Vital Signs: Initial Vital Signs Temp 98.3 F 12/09/19 14:59 Pulse 61 12/09/19 14:59 Resp 18 12/09/19 14:59 BP 110/59 12/09/19 14:59 Pulse Ox 99 12/09/19 14:59 Vital Signs Reviewed: Yes Eye Exam: Normal Eyes: Positive: Conjunctiva Clear ENT Exam: Normal ENT: Positive: Normal ENT inspection, Hearing grossly normal, Pharynx normal, TMs normal, Uvula midline. Negative: Tonsillar swelling, Tonsillar exudate, Trismus, Muffled voice, Hoarse voice, Dental tenderness, Sinus tenderness Dental Exam: Normal Neck exam: Normal Neck: Positive: Supple, Nontender, No Lymphadenopathy Respiratory Exam: Normal Respiratory: Positive: Chest non-tender, No respiratory distress, No accessory muscle use, Wheezing - bilateral expiratory wheeze in bases Cardiovascular Exam: Normal Cardiovascular: Positive: RRR, No Murmur, Pulses Normal, Brisk Capillary Refill Musculoskeletal Exam: Normal Musculoskeletal: Positive: Strength Intact, ROM Intact, No Edema Neurological Exam: Normal Neurological: Positive: Alert, Muscle Tone Normal Psychological Exam: Normal Skin Exam: Normal Diagnostics - Laboratory Lab Results: influenza A + Flu Course/Dx - Course Course Of Treatment: otc medications for symptom relief, increase fluids, rest follow with pcp prn - Differential Dx/Diagnosis Provider Diagnosis: Influenza A, Bronchospasm Discharge ED - Sign-Out/Discharge Documenting (check all that apply): Patient Departure All imaging exams completed and their final reports reviewed: No Studies - Discharge Plan Condition: Stable Disposition: HOME Patient Education Materials: Influenza (ED), How to Use a Metered-Dose Inhaler and a Spacer (ED) Forms: *Work Release Referrals: Michael Woo MD [Primary Care Provider] - If Needed - Billing Disposition and Condition Condition: STABLE Disposition: Home
== END 2019-12-09 15:38 | disposition home or self-care (01) ==
LOC: UCEAST 13:49
DX: J10.1 Influenza due to other identified influenza virus with other respiratory manifestations (principal); F32.9 Major depressive disorder, single episode, unspecified; J98.01 Acute bronchospasm; Z79.899 Other long term (current) drug therapy
CPT/HCPCS: 99212; A9270-GY; G0463